=== PATIENT | male | born 1950 | race Caucasian/White ===

== ENCOUNTER 2019-10-26 09:13 | Inpatient (IN) | payer MEDICARE, OTHER, SELFPAY ==
[2019-10-26] VITALS (39 sets, daily range): BP systolic 109–208; BP diastolic 71–100; PULSE 43–62; RESP 7–20; TEMP 36.6–36.7; O2SAT 93–99; BMI 33.2
--- NOTE | 2019-10-26 09:39 | XR_ITS ---
WS: [id number] Portable AP upright chest, 10/26/2019 Clinical Data: chest pain Comparison: None, Findings: No nodules, masses or effusions are seen. The heart is normal. The pulmonary vascularity is not increased. No pneumonia or pneumothorax is seen. XR/XR chest 1V portable [id number] Impression: Negative chest.
--- NOTE | 2019-10-26 09:39 | ECG_ITS ---
[facility] Test Date: 2019-10-26 Pat Name: Dinesh Acuna Department: Room: Gender: Male Tire Balancer: : 1950 Requested By: Negrito Mueller Order Number: [id number] Ariane MD: Birgit Banegas M.D. Measurements Intervals [place] Rate: 53 P: 20 ND: 160 QRS: 9 QRSD: 96 T: 33 QT: 420 QTc: 397 Interpretive Statements SINUS BRADYCARDIA INFERIOR MYOCARDIAL INFARCTION , POSSIBLY ACUTE [40+ ms Q WAVE AND/OR ST/T ABNORMALITY IN II/aVF] ACUTE VT No previous ECG available for comparison Electronically Signed On 10-26-2019 21:22:50 CDT by Birgit Banegas M.D. [id number]
[2019-10-26 09:45] LABS: Basophils # 0.1 10^3/uL (0.0-0.1); Basophils % 0.7 %; Eosinophils # 0.1 10^3/uL (0.0-0.8); Eosinophils % 1.3 %; Hematocrit 44.3 % (42.0-52.0); Hemoglobin 14.7 g/dL (11.7-16.6); Lymphocytes % 13.6 %; Mean Corpuscular HGB Conc 33.2 g/dL (30.0-36.0); Mean Corpuscular Hemoglobin 30.2 pg (28.0-34.0); Mean Platelet Volume 8.9 fL (7.4-10.4); Monocytes # 0.5 10^3/uL (0.2-0.9); Monocytes % 6.8 %; Neutrophils # 5.55 10^3/uL (1.8-7.7); Neutrophils % 77.2 %; Nucleated Red Blood Cells % 0 %; Platelet Count 184 10^3/cmm (130-400); Red Blood Count 4.87 10^6/uL (4.1-5.3); Red Cell Distribution Width 11.9 % (12.1-15.1); White Blood Count 7.2 10^3/uL (4.0-10.0)
[2019-10-26] MEDS: heparin 5,000 unit/mL INJ 1 mL 4000 UNIT IVP (09:46)
[2019-10-26] MEDS: clopidogrel 300 mg Tablet 600 MG PO (09:46)
[2019-10-26] MEDS: aspirin 325 mg Tablet PO (09:46)
--- NOTE | 2019-10-26 09:48 | XACV_ITS ---
Exam Room: [facility] [place] Ht: 183 cm Wt: 111 kg BSA: 2.41 m2 Gender: Male : 1950 Any Known Allergies: No known allergies Exam Priority: Routine Indication(s): - NSTEMI - Acute coronary syndrome Procedure(s): Procedure Description: Diagnostic procedure Procedure Description: Left Heart Catheterization Procedure Description: Left ventriculography Procedure Description: Coronary Angiography Procedure Description: PTCA Diagnostic Cath Status: Emergency Diagnostic Findings LAD has minor luminal irregularity. CX has luminal irregularities. Second OM has a distal 100% occlusion. This is a small caliber vessel and occlusion is at the distal end of the vessel. LM has 0% stenosis. RCA has 0% stenosis. 2nd OM: Severe 100% stenosis, ROBERTO: 0 flow. Coronary angiography shows right dominance. PCI Status: Emergency PCI Indication: NSTE - ACS Interventional Findings We obtained access in the right radial artery. Significant tortuosity of the subclavian artery was noted [place] catheter was used to engage the left main artery. In order to engage the RCA we had to switch the access to right femoral artery where a 6 Citizen [place] sheath was inserted. After diagnostic angiography, we decided to wire with a distal OM 2 in order to assess the size of the vessel. 0.014 runthrough guidewire was inserted into the OM 2. It became evident that the size of the vessel is very small. This was not amenable to putting a stent in. We put a small 2.25 mm balloon and performed PTCA. At this time we decided to take the guidewire and guide catheter out. Patient left the Headend Technician in a stable condition. Conclusions LAD has minor luminal irregularity. CX has luminal irregularities. Second OM has a distal 100% occlusion. This is a small caliber vessel and occlusion is at the distal end of the vessel. We obtained access in the right radial artery. Significant tortuosity of the subclavian artery was noted [place] catheter was used to engage the left main artery. In order to engage the RCA we had to switch the access to right femoral artery where a 6 Citizen [place] sheath was inserted. After diagnostic angiography, we decided to wire with a distal OM 2 in order to assess the size of the vessel. 0.014 runthrough guidewire was inserted into the OM 2. It became evident that the size of the vessel is very small. This was not amenable to putting a stent in. We put a small 2.25 mm balloon and performed PTCA. At this time we decided to take the guidewire and guide catheter out. Patient left the Headend Technician in a stable condition. No significant disease noted in the Left Main, LAD, Circumflex, or RCA coronary arteries. Normal left ventricular systolic function. Ejection fraction of 65%. Recommendations Statin and aspirin 81mg lifelong, if tolerated. Continue Plavix 75mg p.o. daily for at least one year. We will assess at the end of one year to determine continuation or not. Cardiac echo. Interventional RX Recommendation: medical therapy and/or counseling LV EDP: 11 mmHg Ventriculography Ejection Fraction: 65.0 % Left Ventriculography Findings: Normal LV function with no regional wall motion abnormality noted. Pressures Phase:Rest AO : 170 mmHg / 90 mmHg ( 120 mmHg ) @ 5:06:00 AM 171 mmHg / 75 mmHg ( 112 mmHg ) @ 5:24:00 AM 178 mmHg / 80 mmHg ( 117 mmHg ) @ 5:32:00 AM 181 mmHg / 80 mmHg ( 118 mmHg ) @ 5:32:00 AM 140 mmHg / 85 mmHg ( 111 mmHg ) @ 6:13:00 AM LV : 185 mmHg / -18 mmHg / @ 5:30:00 AM 178 mmHg / -6 mmHg / @ 5:31:00 AM 176 mmHg / -6 mmHg / @ 5:32:00 AM Valves Phase:DefaultPhase AV : 3.0 mmHg @ 1:59:15 PM 3.0 mmHg @ 1:59:15 PM AV Mean Gradient: 7.0 mmHg @ 1:59:15 PM Clinical Evaluation EBL: 5mL-10mL Procedural Details Procedure Consent Obtained. Pre-Procedure Time Out. Identified patient by full name and date of as verbalized by the patient/guarantor. Does the consent match the physician's order: Yes. Accurate & Complete Informed Consent: Yes. Inpatient/Outpatient History & Physical on Chart: N/A Emergent. If H&P is completed, is and addenduem needed: N/A Emergent; If yes, is the addendum complete: N/A Emergent. Visualize and Verify Site with Patient/Guarantor: N/A. Relevant Radiology Images available: N/A Emergent. Pre-op teaching completed and patient verbalized understanding. The risks, benefits, and alternatives of sedation and/or procedure were discussed by physician. The patient agrees to continue. Procedure started. [facility] Clinical Fraility Score: 2: Well. Headend Technician Indications: ACS <= 24 hours. Chest Pain Symptom Assessment: Atypical Angina. Cardiovascular Instability: No. Correct patient, site and procedure confirmed by cath team. PERRLA. Strong, equal hand resident care associate bilaterally. Lungs clear x 5 lobes. IV Site on Arrival: 20 gauge in the right anticubital. IV Site on Arrival: 18 gauge in the left anticubital. IV Fluids: 0.9% NaCl at KVO. 0 mL infused prior to lab rn. Oxygen started at 2liters/min via nasal canula. bilateral groins was prepped with chloroprep then draped in the usual sterile fashion. right radial was prepped with chloroprep then draped in the usual sterile fashion. Baseline sample Acquired. HR: 56 BPM. Physician scrubbed in. Immediate Pre-Procedure Time Out. Correct Patient: Yes; Correct Procedure: Yes; Correct Site: Yes; Correct Patient Position: Yes; Correct Supplies: Yes; Dried Flammable Prep: Yes; Blood Products Available: N/A;. Lidocaine 1% infiltrated to the right radial. Arterial access obtained. A 5 gu[place] TIG catheter in over wire. Catheter redirected to the RCA. Multiple views taken of left coronary artery. Catheter out. Inventory is CRD 6FR JR 4 GUIDE 100cm. 6 gu[place] JR 4 guide catheter was inserted over the wire. Guide catheter out. unable to use radial access for intervention due to difficult anatomy. Moving to femoral approach. Lidocaine 1% infiltrated to the right groin. Arterial access obtained with micropuncture set. Aggrastat IV stopped. A 5 guatem[place] Angled Pig catheter in over wire. EDP Sample taken: LV 185/-19,10; HR: 67 BPM; SpO2: 100%. LV gram performed in RUBALCAVA @ 10 mL/second for a total of 30 mL. EDP Sample taken: LV 178/-7,17; HR: 52 BPM; SpO2: 99%. Pullback taken: LV 176/-7,15; AO 178/80(117); Mean: 7mmHg, Peak to Peak: 3mmHg, SEP: 18sec/min; HR: 54 BPM; SpO2: 99%. Physician scrubbed out. A TR Band was successful obtaining hemostatsis at the Right Radial artery insertion site. TR band placed. Hemostasis obtained. A Suture was successful obtaining hemostatsis at the Right Femoral artery insertion site. Sheath(s) sutured into position with 2-0 silk and sterile 4x4's and Op-site applied over the site. No oozing or signs and symptoms of hematoma noted. Post Procedure: Pulses reassessed and unchanged. Arterial sheath flushed and connected to tranducer and pressure bag with heparinized saline. PERRLA. Strong, equal hand resident care associate bilaterally. No VTE prophylaxis required. Medication's Wasted: Nitro = 49.8 mg. Medication's Wasted: Heparin = 4000 units. Complications: none. Estimated blood loss: 5mL-10mL. Procedure completed. Vital chart was stopped. Dr Banegas and Dr Robertson discussed case and reviewed films. Inventory is CRD 6 FR XB 3.5 GUIDE. Runthrough guidewire was advanced through the guide catheter to lesion in the OM. Inflation number : 1 A AB TREK 2.25X12 RX BALLOON was prepped and advanced across the 1st Ob Viktoriya , then inflated to 12 CJ for 0:21 seconds. Inflation number: 2 The AB TREK 2.25X12 RX BALLOON was reinflated across the 1st Ob Viktoriya, to 8 CJ for 0:24 seconds. Results checked. Balloon out. Wire out. PCI Indication: NSTE. Post-op diagnosis: NSTEMI. Complications: NONE. Patient transferred by bed to ICU. Site: Right Radial artery Sheath Size: 6 Fr Hemostasis Method: TR Band Hemostasis Success: Successful Site: Right Femoral artery Sheath Size: 6 Fr Hemostasis Method: Suture Hemostasis Success: Successful Procedure Medications Start: 10:02 AM Stop: 10:02 AM Medication: Versed Amount: 1 mg Route: I.V. Start: 10:02 AM Stop: 10:02 AM Medication: Fentanyl Amount: 50 mcg Route: I.V. Start: 10:03 AM Stop: 10:03 AM Medication: Nitrogylcerin Amount: 200 mcg Route: I.A. Start: 10:06 AM Stop: 10:06 AM Medication: Versed Amount: 1 mg Route: I.V. Start: 10:06 AM Stop: 10:06 AM Medication: Fentanyl Amount: 50 mcg Route: I.V. Start: 10:07 AM Stop: 10:07 AM Medication: Aggrastat 12.5 mg/250 mL Amount: 57.5 ml Route: I.V. bolus Start: 10:08 AM Stop: 10:08 AM Medication: Aggrastat 12.5 mg/250 mL Amount: 20.7 ml/hr Route: I.V. drip Start: 10:23 AM Stop: 10:23 AM Medication: Nitrogylcerin Amount: 1 Route: Topical Start: 11:17 AM Stop: 11:17 AM Medication: Nitrogylcerin Amount: 200 mcg Route: I.C. I, the attending physician, have reviewed and verified all procedure medications. Yes, all medications given per verbal order History/Risk Factors Hypertension: No Dyslipidemia: No Peripheral Arterial Disease (PAD): No Myocardial Infarction (KS): No Obesity: Yes Renal Disease: No Prior Interventions PCI: No CABG: No Valve Surgery: No Report Signatures Finalized by:Jona Robertson MD on 10/27/2019 11:19:12 AM
[2019-10-26] MEDS: sodium chloride 0.9% 1,000 ML 999 ML IV (09:50)
--- NOTE | 2019-10-26 09:53 | PM.HP ---
Providers/Chief Complaint Chief Complaint: tightness in chest History of Present Illness Dinesh Acuna is a 69 year old male past medical history significant for sepsis hypertension obesity probably hyperlipidemia and family h/o coronary artery disease who denies being a smoker and diabetic presented with chest pain radiating to jaw since 6:30 AM while feeding his animals. Upon arrival patient systolic blood pressure was around 220 twelve-lead EKG initially showed inferior ST elevation with reciprocal changes in the septal leads second EKG was also suggestive of high lateral [address] elevation, since patient continues to have chest pain and there is high suspicion that he may have acute coronary syndrome in progress we will take the patient to the Surveillance Sensor Operator. Further plan will be advised then. Patient has been explained all risk benefit and alternative for the procedure he would like to proceed with it. Patient has been given 600 mg of Plavix aspirin and 4000 units of heparin. Medications/Allergies Allergies Allergy/AdvReac Type Severity Reaction Status Date / Time No Known Allergies Allergy Verified 10/26/19 09:29 Vitals/I&O/Wt Last Vital Signs Temp 98.1 F 10/26/19 09:32 Pulse 55 L 10/26/19 09:32 Resp 18 10/26/19 09:32 BP 208/100 10/26/19 09:32 Pulse Ox 96 10/26/19 09:32 Weight last 48 hrs Weight 245 lb Physical Exam Narrative: EXAM NARRATIVE: GENERAL: Patient is alert, awake and oriented x3. NECK: No jugular vein distension. HEENT: No cyanosis. No icterus. No pallor. HEART: Regular S1 and S2. No murmur, rub or gallop. LUNGS: Clear to auscultate bilaterally. ABDOMEN: Soft, nontender and nondistended. Positive bowel sounds. No guarding, rebound or tenderness. CENTRAL NERVOUS SYSTEM: Grossly nonfocal. EXTREMITIES: Lower extremities without edema bilaterally. Data : 10/26/19 09:40 10/26/19 09:40 A&P Assessment and plan (1) ACS (acute coronary syndrome): Patient presentation is consistent with ST elevation HI. We will proceed with urgent left heart cath and PCI if indicated. Patient has been explained all risk benefit and alternative for the procedure by myself. He would like to proceed with it. Status: Acute (2) Hypertensive emergency: We will lower his blood pressure with nitro drip. Status: Acute Attestations Medical Necessity Statement*: I am expecting his stay to cross more than 2 midnights Coding Level of Care Code New Pt Acute Tree Feller Operator for Chg Fwd Patient Type New Medical Decision Making High Complexity Diagnoses ACS (acute coronary syndrome) I24.9 Hypertensive emergency I16.1
--- NOTE | 2019-10-26 09:55 | W.ED.CHESTPA ---
HPI - Chest Pain General: Chief Complaint: Chest Pain Stated Complaint: tightness in chest Time Seen by Provider: 10/26/19 09:34 History of Present Illness: HPI narrative: 69-year-old male presents to the emergency room with complaint of chest pain. 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 Patient is a non-smoker but he does chew he does not have diabetes he does have known history of hypertension no history of hyperlipidemia is not previously had any [place] has no known coronary disease and no previous evaluation of his heart MD complaint: chest pain Pertinent past history: coronary artery disease Onset (ago): hour(s) (Chest pain began at 6:30 AM patient presented to the emergency room at around 9:10 AM) Timing of current episode: constant Prior episodes: No Onset: during exertion Pain location: substernal and left chest Pain radiation: left shoulder Severity: moderate Quality: tightness and sharp Relieving factors: rest Exacerbating factors: exertion Associated symptoms: Deny abdominal pain, diaphoresis, dyspnea, fever(s), leg edema, nausea, sense of impending doom or vomiting Treatment prior to arrival: aspirin (81 mg) Review of Systems Const: Denies: fever(s) or diaphoresis ENMT: Denies: throat pain, ear or mastoid pain, nasal discharge or nasal congestion Card: Reports: chest pain and dyspnea on exertion; Denies: edema or orthopnea Resp: Denies: dyspnea GI: Denies: abdominal pain, nausea or vomiting : Denies: flank pain, dysuria, urinary frequency or urinary urgency Skin/Breast: Denies: rash or pruritus Physical Exam Const: COMMON NORMALS: no acute distress GENERAL APPEARANCE: cooperative and comfortable ORIENTATION/CONSCIOUSNESS: Yes awake, Yes oriented to person, Yes oriented to place and Yes oriented to time HENMT: COMMON NORMALS: normocephalic, atraumatic and hearing grossly normal bilaterally HEAD & SCALP: normocephalic and atraumatic Neck/C-Spine: COMMON NORMALS: no JVD Resp: COMMON NORMALS: normal respiratory effort, No retractions, No use of accessory muscles and clear to auscultation bilaterally AUSCULTATION: clear to auscultation bilaterally Cardio: COMMON NORMALS: no JVD, regular rate, regular rhythm and No murmurs present (Cardio) RATE: regular rate RHYTHM: regular rhythm GI: COMMON NORMALS: Soft to palpation and No hepatosplenomegaly present AUSCULTATION: Yes normoactive bowel sounds PALPATION: Yes Soft to palpation, No Tenderness to palpation present (GI), No Guarding due to palpation present (GI) and Yes No hepatosplenomegaly present Extremity: COMMON NORMALS: normal to inspection, capillary refill normal, no clubbing, cyanosis or edema, no calf tenderness and no pedal edema Neuro: SENSORIUM/ORIENTATION: Yes oriented to person, Yes oriented to place and Yes oriented to time Skin: COMMON NORMALS: no rashes or lesions noted GENERAL SKIN EXAM: no rashes or lesions noted Course Vital Signs: Vital signs: Vital Signs Temperature 98.8 F 10/27/19 07:00 Pulse Rate 54 L 10/27/19 09:30 Respiratory Rate 17 10/27/19 09:30 Blood Pressure 142/86 10/27/19 09:00 Pulse Oximetry 98 10/27/19 08:30 MDM - Chest Pain MDM Narrative: Medical decision making narrative: EKG shows a STEMI. STEMI alert was called Dr. Pierre is down to see the patient along with Dr. Caldwell they will take patient to the Social Media Marketing Specialist for angiography. He will be admitted from there. Lab Data: Labs: Lab Results 10/26/19 10/26/19 10/26/19 Range/Units 09:40 09:40 09:40 WBC 7.2 (4.0-10.0) 10^3/ uL RBC 4.87 (4.1-5.3) 10^6/u L Hgb 14.7 (11.7-16.6) g/dL Hct 44.3 (42.0-52.0) % MCV 91.0 (80-94) fL MCH 30.2 (28.0-34.0) pg MCHC 33.2 (30.0-36.0) g/dL RDW 11.9 L (12.1-15.1) % Plt Count 184 (130-400) 10^3/c mm MPV 8.9 (7.4-10.4) fL Neut % (Auto) 77.2 % Lymph % (Auto) 13.6 % [place] % (Auto) 6.8 % Eos % (Auto) 1.3 % Baso % (Auto) 0.7 % Neut # (Auto) 5.55 (1.8-7.7) 10^3/u L Lymph # (Auto) 1.0 (0.8-4.8) 10^3/u L [place] # (Auto) 0.5 (0.2-0.9) 10^3/u L Eos # (Auto) 0.1 (0.0-0.8) 10^3/u L Baso # (Auto) 0.1 (0.0-0.1) 10^3/u L Nucleated RBC % (a uto) 0 % Nucleated RBCs # 0.0 /100WBC PT 13.50 (12.1-14.9) SECO NDS INR 1.00 (0.8-1.2) APTT 28.7 (23.9-36.7) SECO NDS Sodium 138 (136-145) mmol/L Potassium 4.6 (3.5-5.1) mmol/L Chloride 104 (98-107) mmol/L Carbon Dioxide 24 (22-29) mmol/L Anion Gap 14.6 (5-19) BUN 18 (8-23) mg/dL Creatinine 0.8 (0.7-1.2) mg/dL GFR Calculation 96.4 (90-130) mL/min Glucose 134 H (65-115) mg/dL Calculated Osmolal ity 284 L (285-295) mOsm/k g Calcium 9.2 (8.5-10.5) mg/dL Total Bilirubin 0.3 (0.15-1.2) mg/dL AST 75 H (0-40) U/L ALT 93 H (0-41) U/L Alkaline Phosphata se 48 (40-130) IU/L Troponin T Baselin e (0-15) ng/L Troponin T 120 Min [place] (0-15) ng/L Delta Troponin T (0-10) ABS# Total Protein 7.6 (6.6-8.7) g/dL Albumin 4.6 (3.5-5.2) g/dL Globulin 3.0 (1.3-4.6) g/dL Triglycerides (0-150) mg/dL Cholesterol (0-200) mg/dL LDL Cholesterol, C alc (50-129) mg/dL HDL Cholesterol (60-100) mg/dL LDL/HDL Ratio (0.00-3.22) RATI O Cholesterol/HDL Ra meka (1.0-5.00) mg/dL 10/26/19 10/26/19 10/26/19 Range/Units 09:40 09:40 12:03 WBC (4.0-10.0) 10^3/ uL RBC (4.1-5.3) 10^6/u L Hgb (11.7-16.6) g/dL Hct (42.0-52.0) % MCV (80-94) fL MCH (28.0-34.0) pg MCHC (30.0-36.0) g/dL RDW (12.1-15.1) % Plt Count (130-400) 10^3/c mm MPV (7.4-10.4) fL Neut % (Auto) % Lymph % (Auto) % [place] % (Auto) % Eos % (Auto) % Baso % (Auto) % Neut # (Auto) (1.8-7.7) 10^3/u L Lymph # (Auto) (0.8-4.8) 10^3/u L [place] # (Auto) (0.2-0.9) 10^3/u L Eos # (Auto) (0.0-0.8) 10^3/u L Baso # (Auto) (0.0-0.1) 10^3/u L Nucleated RBC % (a uto) % Nucleated RBCs # /100WBC PT (12.1-14.9) SECO NDS INR (0.8-1.2) APTT (23.9-36.7) SECO NDS Sodium (136-145) mmol/L Potassium (3.5-5.1) mmol/L Chloride (98-107) mmol/L Carbon Dioxide (22-29) mmol/L Anion Gap (5-19) BUN (8-23) mg/dL Creatinine (0.7-1.2) mg/dL GFR Calculation (90-130) mL/min Glucose (65-115) mg/dL Calculated Osmolal ity (285-295) mOsm/k g Calcium (8.5-10.5) mg/dL Total Bilirubin (0.15-1.2) mg/dL AST (0-40) U/L ALT (0-41) U/L Alkaline Phosphata se (40-130) IU/L Troponin T Baselin e 95 H (0-15) ng/L Troponin T 120 Min [place] 305.0 H (0-15) ng/L Delta Troponin T 210.0 H* (0-10) ABS# Total Protein (6.6-8.7) g/dL Albumin (3.5-5.2) g/dL Globulin (1.3-4.6) g/dL Triglycerides 225 H (0-150) mg/dL Cholesterol 194 (0-200) mg/dL LDL Cholesterol, C alc 112 (50-129) mg/dL HDL Cholesterol 37 L (60-100) mg/dL LDL/HDL Ratio 3.03 (0.00-3.22) RATI O Cholesterol/HDL Ra meka 5.24 H (1.0-5.00) mg/dL Discharge Plan Discharge Patient Disposition: Admitted As Inpatient Admit Provider: Birgit Banegas Clinical Impression: ST elevation myocardial infarction (STEMI) Referrals: [facility] [Provider Group] - 4-7 days (YOU WILL NEED TO FOLLOW UP AT [facility] [phone] , YOU WILL FOLLOW UP WITH JAZMIN CUELLAR ,FOR WOUND CHECK AND LAB , THIS APPOINTMENT IS SCHEDULED FOR SUNDAY NOVEMBER 03, 2019 AT 2:00 PM ) Jona Robertson M.D [Physician] - (YOUR FOLLOW UP APPOINTMENT WITH . SCHEDULED FOR THE FOLLOWING DATE OF AT 1:15 PM ) Discharge Diet: Cardiac Patient Instructions: Lisinopril (By mouth), Aspirin (By mouth), Atorvastatin (By mouth), Clopidogrel (By mouth), Heart Healthy Diet, Myocardial Infarction (DC), Left Heart Catheterization (DC), Coronary Angioplasty (DC), Post Angiogram Home Care Instructions Interventions: ED Discharge Assessment Last Done: 10/26/19 10:00 ED Charges Last Done: 10/26/19 10:00 Discharge Date/Time: 10/26/19 09:58 Coding Level of Care Code ED Manual Lathe Operator for [facility] Fwd Exam Comprehensive
[2019-10-26 10:11] LABS: Alanine Aminotransferase 93 U/L (0-41); Albumin Level 4.6 g/dL (3.5-5.2); Alkaline Phosphatase 48 IU/L (40-130); Anion Gap 14.6 (5-19); Aspartate Amino Transferase 75 U/L (0-40); Blood Urea Nitrogen 18 mg/dL (8-23); Calcium 9.2 mg/dL (8.5-10.5); Carbon Dioxide 24 mmol/L (22-29); Chloride 104 mmol/L (98-107); Glomerular Filtration Rate 96.4 mL/min (90-130); Glucose 134 mg/dL (65-115); Osmolality Calculated 284 mOsm/kg (285-295); Potassium 4.6 mmol/L (3.5-5.1); Sodium 138 mmol/L (136-145); Total Bilirubin 0.3 mg/dL (0.15-1.2); Total Protein 7.6 g/dL (6.6-8.7)
[2019-10-26 10:13] LABS: Troponin(5th) Baseline 95 ng/L (0-15)
[2019-10-26 10:14] LABS: Partial Thromboplastin Time 28.7 SECONDS (23.9-36.7)
--- NOTE | 2019-10-26 11:39 | ECG_ITS ---
[facility] Test Date: 2019-10-26 Pat Name: Dinesh Acuna Department: Room: Gender: Male Linux Engineer: : 1950 Requested By: Negrito Mueller Order Number: [id number] Ariane MD: Birgit Banegas M.D. Measurements Intervals [place] Rate: 58 P: 34 MD: 162 QRS: 53 QRSD: 97 T: 27 QT: 403 QTc: 398 Interpretive Statements SINUS BRADYCARDIA Lateral wall ST elevation with inferior reciprocal changes suggestive of injury, consider acute myocardial infarction Electronically Signed On 10-26-2019 21:25:23 CDT by Birgit Banegas M.D. [id number]
[2019-10-26] MEDS: lisinopril 10 mg Tablet PO (12:58)
[2019-10-26] MEDS: acetaminophen 325 mg Tablet 650 MG PO ×2 (13:49→20:07)
[2019-10-26] MEDS: calcium carbonate 500 mg Chew Tablet 1000 MG PO (13:49)
--- NOTE | 2019-10-26 14:15 | PC.CHAP ---
Pastoral Care Encounter/Spiritual Assessment Type of Contact [] Declined public housing interviewer visit [x] Patient/Family/Request visit [] Outpatient visit [] Follow-up visit [] Physician referral [] Code/Alert [] Routine visit [] Staff referral [] Actively dying [] Patient sleeping [] Family support [] [] Out of room [] Palliative care [] [] Receiving care in room [] Pre-surgical visit [] Trauma [] Long length of stay [x] ICU visit [] Other: Relational/Emotional Strength [x] Patient feels connected with others/family/visitors/staff [] Distress [] Loneliness/isolation [] Abandonment Spirituality of Patient [x] Person of Tatiana [x] Attends Taoist of their Tatiana [x] Believes in Prayer [] Reads Bible or Anabaptism materials [] There are Spiritual issues to be addressed Time Analysis Clerk Interventions [] Prayer [x] Active listening [x] Non-anxious presence [x] Spiritual/emotional support [] Crisis/trauma care [] Spiritual counseling [] Bereavement support [] Provided bereavement packet [] Provided Bible/devotional materials [] Provided toy/stuffed animal, coloring book to patient or family member [] Provided Communion [] Anointing/Mc[place] [] Salvation [] Completed spiritual assessment [] Other: Impact on Illness or Injury [] Angry [] Fearful [] Anxious [] Often cries [] Exhaustion [] Unable to work [] Unable to attend druze [] Unable to walk/stand [] Unable to read [] Unable to drive [] Unable to eat/drink [] Unable to sleep [] Unable to be with family [] Patient intubated [] Other: Summary Patient feeling much better, in good spirits and feels blessed. Time spent with patient 10 min
--- NOTE | 2019-10-26 15:23 | PC.NURSE ---
c/o indigestion and headache. tylenol and tums given. some relief. states indigestion is not like he had this am.
[2019-10-26] MEDS: sodium chloride 0.9% 1,000 ML 100 ML IV ×2 (15:35→20:08)
--- NOTE | 2019-10-26 15:39 | ECG_ITS ---
[facility] Test Date: 2019-10-26 Pat Name: Dinesh Acuna Department: Room: ICU01 Gender: Male Unit Coordinator: : 1950 Requested By: Negrito Mueller Order Number: [id number] Ariane MD: Birgit Banegas M.D. Measurements Intervals [place] Rate: 44 P: 34 SD: 190 QRS: -3 QRSD: 90 T: 19 QT: 460 QTc: 397 Interpretive Statements SINUS BRADYCARDIA Compared to ECG 10/26/2019 09:46:57 Myocardial infarct finding no longer present Electronically Signed On 10-26-2019 21:26:04 CDT by Birgit Banegas M.D. [id number]
--- NOTE | 2019-10-26 17:00 | PC.NURSE ---
sheath removed from right groin intact. pressure held for 10 min. no oozing. removing air from tr band slowly.
[2019-10-26 17:26] LABS: Troponin 5 6HR 660.5 ng/L (0-15); Troponin 5 6HR Delta 565.5 ng/L (0-12)
[2019-10-26 19:26] LABS: Chol HDL Ratio 5.24 mg/dL (1.0-5.00); Cholesterol 194 mg/dL (0-200); HDL Cholesterol 37 mg/dL (60-100); LDL Cholesterol Calculated 112 mg/dL (50-129); LDL HDL Ratio 3.03 RATIO (0.00-3.22); Triglycerides 225 mg/dL (0-150)
[2019-10-26] MEDS: atorvastatin 40 mg Tablet PO (20:07)
--- NOTE | 2019-10-26 23:54 | PC.NURSE ---
Right groin site C/D/I, dressing changed to tagaderm. Patient sat upright in bed, positioned to standing, asymptomatic. Nitro paste to right pectoral area cleaned, thrown away. After movement patient's right groin site remained C/D/I.
[2019-10-27] VITALS (17 sets, daily range): BP systolic 124–158; BP diastolic 76–86; PULSE 46–64; RESP 0–17; TEMP 36.6–37.1; O2SAT 94–98
[2019-10-27] MEDS: acetaminophen 325 mg Tablet 650 MG PO (02:49)
[2019-10-27] MEDS: sodium chloride 0.9% 1,000 ML 100 ML IV (03:35)
[2019-10-27 04:54] LABS: Basophils % 0.4 %; Eosinophils # 0.2 10^3/uL (0.0-0.8); Hematocrit 40.1 % (42.0-52.0); Hemoglobin 13.1 g/dL (11.7-16.6); Lymphocytes # 1.2 10^3/uL (0.8-4.8); Lymphocytes % 15.6 %; Mean Corpuscular HGB Conc 32.7 g/dL (30.0-36.0); Mean Corpuscular Hemoglobin 29.9 pg (28.0-34.0); Mean Corpuscular Volume 91.6 fL (80-94); Mean Platelet Volume 9.4 fL (7.4-10.4); Monocytes # 0.8 10^3/uL (0.2-0.9); Monocytes % 10.2 %; Neutrophils # 5.27 10^3/uL (1.8-7.7); Neutrophils % 70.7 %; Nucleated Red Blood Cells % 0 %; Platelet Count 170 10^3/cmm (130-400); Red Blood Count 4.38 10^6/uL (4.1-5.3); White Blood Count 7.5 10^3/uL (4.0-10.0)
[2019-10-27 05:22] LABS: Anion Gap 13.6 (5-19); Blood Urea Nitrogen 13 mg/dL (8-23); Calcium 8.8 mg/dL (8.5-10.5); Carbon Dioxide 23 mmol/L (22-29); Chloride 106 mmol/L (98-107); Glomerular Filtration Rate 96.4 mL/min (90-130); Glucose 123 mg/dL (65-115); Osmolality Calculated 284 mOsm/kg (285-295); Potassium 4.6 mmol/L (3.5-5.1); Sodium 138 mmol/L (136-145)
--- NOTE | 2019-10-27 08:21 | PM.DCS ---
Discharge Providers Date of Admission: 10/26/19 12:05 Date of Discharge: October 27, 2019 Attending Provider at Admission: Birgit Banegas MD Attending Provider at Discharge: Jona Robertson MD Diagnoses at Discharge Discharge Diagnosis (1) ACS (acute coronary syndrome): Status: Acute Problem details: NSTEMI (2) Hypertensive emergency: Status: Acute Reason for Visit Reason for Visit: tightness in chest Brief History: 69-year-old man with no prior medical history, presented to the hospital with 3 to 4 hours of indigestion and chest discomfort radiating to the neck. EKG showed transient ST changes in in lateral and inferior leads. 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 Hospital Course Hospital Course: 69-year-old man with no prior medical history, presented to the hospital with 3 to 4 hours of indigestion and chest discomfort radiating to the neck. EKG showed transient ST changes in in lateral and inferior leads. Patient also had hypertensive emergency with blood pressure in excess of 210 mmHg systolic. 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 Cardiac angiogram showed occlusion of distal OM 2 vessel which was small sized artery. Balloon angioplasty was performed, however because of the distal site of the coronary artery and the small size still stent was not placed. LV gram showed normal ejection fraction. Echocardiogram showed also showed normal heart function with no significant regional wall motion abnormalities. Postprocedure patient's chest pain resolved. His EKG changes also resolved on follow-up EKG. On post catheter day 2, patient was in a stable condition. He was discharged on aspirin, Plavix, atorvastatin and lisinopril 10 mg. Patient could not be started on beta-megan because of bradycardia. Discharge Summary: 69-year-old man with no prior medical history, presented to the hospital with 3 to 4 hours of indigestion and chest discomfort radiating to the neck. EKG showed transient ST changes in in lateral and inferior leads. Patient also had hypertensive emergency with blood pressure in excess of 210 mmHg systolic. 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 Cardiac angiogram showed occlusion of distal OM 2 vessel which was small sized artery. Balloon angioplasty was performed, however because of the distal site of the coronary artery and the small size still stent was not placed. LV gram showed normal ejection fraction. Echocardiogram showed also showed normal heart function with no significant regional wall motion abnormalities. Postprocedure patient's chest pain resolved. His EKG changes also resolved on follow-up EKG. On post catheter day 2, patient was in a stable condition. He was discharged on aspirin, Plavix, atorvastatin and lisinopril 10 mg. Patient could not be started on beta-megan because of bradycardia. Physical Exam Narrative: EXAM NARRATIVE: GENERAL: Patient is alert, awake and oriented x3. [] NECK: No jugular vein distension. [] HEENT: No cyanosis. No icterus. No pallor. [] HEART: Regular S1 and S2. No murmur, rub or gallop. [] LUNGS: Clear to auscultate bilaterally. [] ABDOMEN: Soft, nontender and nondistended. Positive bowel sounds. No guarding, rebound or tenderness. [] CENTRAL NERVOUS SYSTEM: Grossly nonfocal. [] EXTREMITIES: Lower extremities with no edema bilaterally. pulses palpable in the lower extremities, both dorsalis pedis and posterior tibial. [] Discharge Data Data Completed and Pending: Completed Studies During Hospitalization Category Date Time Status XR chest 1V anabelle ble [id number] Urgent Exams 10/26/19 09:39 Completed Pending at discharge Category Date Time Status BORING MACHINE OPERATOR request for service Stat Exams 10/26/19 09:48 Taken CV echo complete* [id number] Routine Ultrasound 10/27/19 17:41 Taken Labs from last 24 hours 10/27/19 10/27/19 10/26/19 04:20 04:20 15:22 WBC 7.5 RBC 4.38 Hgb 13.1 Hct 40.1 L MCV 91.6 MCH 29.9 MCHC 32.7 RDW 12.0 L Plt Count 170 MPV 9.4 Neut % (Auto) 70.7 Lymph % (Auto) 15.6 [place] % (Auto) 10.2 Eos % (Auto) 3.0 Baso % (Auto) 0.4 Neut # (Auto) 5.27 Lymph # (Auto) 1.2 [place] # (Auto) 0.8 Eos # (Auto) 0.2 Baso # (Auto) 0.0 Nucleated RBC % (a uto) 0 Nucleated RBCs # 0.0 PT INR APTT 31.0 Sodium 138 Potassium 4.6 Chloride 106 Carbon Dioxide 23 Anion Gap 13.6 BUN 13 Creatinine 0.8 GFR Calculation 96.4 Glucose 123 H Calculated Osmolal ity 284 L Calcium 8.8 Total Bilirubin AST ALT Alkaline Phosphata se Troponin T Baselin e Troponin T [address] [place] Troponin T Troponin T Hi Sens 6Hr Troponin T Hi Sens 6Hr Delta Total Protein Albumin Globulin Triglycerides Cholesterol LDL Cholesterol, C alc HDL Cholesterol LDL/HDL Ratio Cholesterol/HDL Ra meka 10/26/19 10/26/19 10/26/19 15:22 12:03 09:40 WBC RBC Hgb Hct MCV MCH MCHC RDW Plt Count MPV Neut % (Auto) Lymph % (Auto) [place] % (Auto) Eos % (Auto) Baso % (Auto) Neut # (Auto) Lymph # (Auto) [place] # (Auto) Eos # (Auto) Baso # (Auto) Nucleated RBC % (a uto) Nucleated RBCs # PT INR APTT Sodium Potassium Chloride Carbon Dioxide Anion Gap BUN Creatinine GFR Calculation Glucose Calculated Osmolal ity Calcium Total Bilirubin AST ALT Alkaline Phosphata se Troponin T Baselin e Troponin T [address] [place] 305.0 H Delta Troponin T 210.0 H* Troponin T Hi Sens 6Hr 660.5 H Troponin T Hi Sens 6Hr Delta 565.5 H* Total Protein Albumin Globulin Triglycerides 225 H Cholesterol 194 LDL Cholesterol, C alc 112 HDL Cholesterol 37 L LDL/HDL Ratio 3.03 Cholesterol/HDL Ra meka 5.24 H 10/26/19 10/26/19 10/26/19 09:40 09:40 09:40 WBC RBC Hgb Hct MCV MCH MCHC RDW Plt Count MPV Neut % (Auto) Lymph % (Auto) [place] % (Auto) Eos % (Auto) Baso % (Auto) Neut # (Auto) Lymph # (Auto) [place] # (Auto) Eos # (Auto) Baso # (Auto) Nucleated RBC % (a uto) Nucleated RBCs # PT 13.50 INR 1.00 APTT 28.7 Sodium 138 Potassium 4.6 Chloride 104 Carbon Dioxide 24 Anion Gap 14.6 BUN 18 Creatinine 0.8 GFR Calculation 96.4 Glucose 134 H Calculated Osmolal ity 284 L Calcium 9.2 Total Bilirubin 0.3 AST 75 H ALT 93 H Alkaline Phosphata se 48 Troponin T Baselin e 95 H Troponin T [address] [place] Troponin T Troponin T Hi Sens 6Hr Troponin T Hi Sens 6Hr Delta Total Protein 7.6 Albumin 4.6 Globulin 3.0 Triglycerides Cholesterol LDL Cholesterol, C alc HDL Cholesterol LDL/HDL Ratio Cholesterol/HDL Ra meka 10/26/19 09:40 WBC 7.2 RBC 4.87 Hgb 14.7 Hct 44.3 MCV 91.0 MCH 30.2 MCHC 33.2 RDW 11.9 L Plt Count 184 MPV 8.9 Neut % (Auto) 77.2 Lymph % (Auto) 13.6 [place] % (Auto) 6.8 Eos % (Auto) 1.3 Baso % (Auto) 0.7 Neut # (Auto) 5.55 Lymph # (Auto) 1.0 [place] # (Auto) 0.5 Eos # (Auto) 0.1 Baso # (Auto) 0.1 Nucleated RBC % (a uto) 0 Nucleated RBCs # 0.0 PT INR APTT Sodium Potassium Chloride Carbon Dioxide Anion Gap BUN Creatinine GFR Calculation Glucose Calculated Osmolal ity Calcium Total Bilirubin AST ALT Alkaline Phosphata se Troponin T Baselin e Troponin T [address] [place] Troponin T Troponin T Hi Sens 6Hr Troponin T Hi Sens 6Hr Delta Total Protein Albumin Globulin Triglycerides Cholesterol LDL Cholesterol, C alc HDL Cholesterol LDL/HDL Ratio Cholesterol/HDL Ra meka Vitals: Last Vital Signs Temp 98.8 F 10/27/19 07:00 Pulse 59 L 10/27/19 07:00 Resp 17 10/27/19 07:00 BP 124/85 10/27/19 07:00 Pulse Ox 97 10/27/19 07:00 Discharge Plan Discharge Patient Disposition: Home Prescriptions: New atorvastatin 40 mg Tablet 40 mg PO BEDTIME Qty: 30 RF: 4 clopidogrel 75 mg Tablet 75 mg PO DAILY Qty: 90 RF: 4 aspirin 81 mg Tablet,Delayed Release (Dr/Ec) 81 mg PO DAILY Qty: 90 RF: 4 lisinopril 10 mg Tablet 10 mg PO DAILY Qty: 30 RF: 4 Discharge Orders: Discharge Order (Routine); Ordered 10/27/19 Ordered By: Jona Robertson Referrals: [facility] [Provider Group] - 4-7 days (YOU WILL NEED TO FOLLOW UP AT [facility] [phone] , YOU WILL FOLLOW UP WITH JAZMIN CUELLAR ,FOR WOUND CHECK AND LAB , THIS APPOINTMENT IS SCHEDULED FOR SUNDAY NOVEMBER 03, 2019 AT 2:00 PM ) Jona Robertson M.D [Physician] - (YOUR FOLLOW UP APPOINTMENT WITH . SCHEDULED FOR THE FOLLOWING DATE OF AT 1:15 PM ) Discharge Diet: Cardiac Patient Instructions: Lisinopril (By mouth), Aspirin (By mouth), Atorvastatin (By mouth), Clopidogrel (By mouth), Heart Healthy Diet, Myocardial Infarction (DC), Left Heart Catheterization (DC), Coronary Angioplasty (DC), Post Angiogram Home Care Instructions Discharge Date/Time: 10/27/19 11:30 Discharge Attestations Time Spent in Discharge Care*: greater than 30 min Specific Discharge Activities: Specific discharge activities: educating patient and documenting/other paperwork Status at Discharge: Cognitive status at discharge: cognitively intact, Behavioral status at discharge: cooperative, Functional status at discharge: independent ambulation Overall status at discharge: patient is back to baseline Quality Metrics Clinical Quality Measures During this hospital stay, did patient experience: None Coding Level of Care Code 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
[2019-10-27] MEDS: aspirin 81 mg EC Tablet PO (08:35)
[2019-10-27] MEDS: clopidogrel 75 mg Tablet PO (08:35)
[2019-10-27] MEDS: lisinopril 10 mg Tablet PO (08:35)
--- NOTE | 2019-10-27 13:04 | PC.NURSE ---
Pt discharged home at 11:40. Education given. Paperwork given and signed. He was reminded of his two upcoming follow-up appointments with Dr. Robertson. IV's removed. Puncture sites (right radial and right femoral) WNL; dressings intact. No s/s distress and no complaints from patient. All questions answered. Prescriptions called in to his preferred pharmacy. Pt was strongly encouraged to call someone to drive him home, but he insisted on driving himself home. Pt agreed to call this department and let us know he had made it home safely (which he later did). Pt assisted via wheelchair to his vehicle. Personal belongings given to him.
--- NOTE | 2019-10-27 17:41 | USCV_ITS ---
Dinesh Acuna Age: 69 Gender: M : 1950 Exam Date: 10/27/2019 06:07 Ordering Phys: Jona Robertson M.D ([email or web address]) Technologist: Ebonie Nielson [place] [facility] [place]: ID POST CATH AND INTERVENTION BP: 147 / 85 HR: 46 Rhythm: Sinus Technical Quality: Adequate MEASUREMENTS (Male / Female) Normal Values 2D ECHO LV Diastolic Diameter PLAX 5.4 cm 4.2 - 5.9 / 3.9 - 5.3 cm LV Systolic Diameter PLAX 3.3 cm LV Chamber Size 3.5 cm IVS Diastolic Thickness 1.3 cm 0.6 - 1.0 / 0.6 - 0.9 cm IVS Systolic Thickness 2.1 cm LVPW Diastolic Thickness 1.2 cm 0.6 - 1.0 / 0.6 - 0.9 cm LVPW Systolic Thickness 1.8 cm RV Chamber Size 3.2 cm LVOT Diameter 2.2 cm LV Ejection Fraction 2D Teich 69.1 % LV Ejection Fraction MOD 2C 29.5 % LV Ejection Fraction 2C AL 34.7 % LA Diameter 5.4 cm LA Width 2.9 cm LA Height 4.0 cm RA Width 4.0 cm RA Height 3.4 cm Aorta at Sinotubular Diameter 3.9 cm M-MODE LV Diastolic Diameter MM 6.7 cm 4.2 - 5.9 / 3.9 - 5.3 cm LV Systolic Diameter MM 3.4 cm LV Ejection Fraction MM Teich 79.1 % IVS Diastolic Thickness MM 1.1 cm 0.6 - 1.0 / 0.6 - 0.9 cm IVS Systolic Thickness MM 2.1 cm LVPW Diastolic Thickness MM 1.4 cm 0.6 - 1.0 / 0.6 - 0.9 cm LVPW Systolic Thickness MM 2.3 cm RV Diastolic Diameter MM 1.9 cm Aortic Annulus Diameter 3.6 cm LA Ao Ratio MM 1.5 MV E Point Septal Separation 0.2 cm DOPPLER AV Peak Velocity 147.0 cm/s LVOT Peak Velocity 147.0 cm/s AV Area Cont Eq vti 3.4 cm squared AV Area Cont Eq pk 3.8 cm squared MV Area PHT 2.7 cm squared Mitral E to A Ratio 0.8 MV E' Velocity 7.0 cm/s Mitral E to MV E' Ratio 9.7 Mitral E to LV E' Lateral Ratio 9.9 Mitral E to LV E' Septal Ratio 9.6 TR Peak Velocity 131.7 cm/s TR Peak Gradient 6.9 mmHg TR Mean Velocity 90.3 cm/s TR Mean Gradient 3.5 mmHg TR Velocity Time Integral 31.2 cm TV Peak E Velocity 61.0 cm/s Right Atrial Pressure 3.0 mmHg Pulmonary Artery Systolic Pressu 9.9 mmHg PV Peak Velocity 67.0 cm/s RV Acceleration Time 0.2 s RV Ejection Time 0.4 s RV AcT/ET 0.5 FINDINGS Left Ventricle Normal left ventricular size, systolic function and wall thickness, with no regional wall motion abnormalities. LVEF is 55 to 60%. Normal left ventricular wall thickness. Diastolic dysfunction is noted. Right Ventricle The right ventricle is normal in size and function. Right Atrium The right atrium is normal in size. Left Atrium The left atrium is normal in size. Mitral Valve Structurally normal mitral valve without significant stenosis or prolapse. There is no mitral regurgitation. Aortic Valve Structurally normal aortic valve without significant sclerosis or stenosis. There is no aortic regurgitation. Tricuspid Valve Structurally normal tricuspid valve without significant stenosis or regurgitation. RVSP cannot be calculated because of insufficient TR jet. Pulmonic Valve Structurally normal pulmonic valve without significant stenosis. There is no pulmonic regurgitation. Pericardium Normal pericardium without effusion. Aorta Normal ascending aorta dimension. CONCLUSIONS This is technically adequate study. Normal LV function with EF of 55- 60%. Diastolic dysfunction is noted. Jona Robertson MD (Electronically Signed) Final Date: 27 October 2019 10:18 S
== END 2019-10-27 11:30 | disposition home or self-care (01) | DRG 281 ==
LOC: ER 09:58 → CCL 09:58 → ICU 20:48
PROVIDERS: Internal Medicine; Admitting Provider Internal Medicine Cardiovascular Disease; Emergency Provider Family Medicine; Visit Provider Internal Medicine Cardiovascular Disease
DX: I21.4 Non-ST elevation (NSTEMI) myocardial infarction (principal); I16.1 Hypertensive emergency; I24.9 Acute ischemic heart disease, unspecified; E66.9 Obesity, unspecified; Z68.33 Body mass index [BMI] 33.0-33.9, adult; E78.5 Hyperlipidemia, unspecified; Z82.49 Family history of ischemic heart disease and other diseases of the circulatory system; F17.220 Nicotine dependence, chewing tobacco, uncomplicated
CPT/HCPCS: 12345; 36415; 71045; 80048; 80053; 80061; 84484; 85025; 85610; 85730; 92920; 93005; 93306; 93452; 96375; 99282; C1725; C1769; C1887; C1894; J1644; J2250; J3010; J3246; J3490; J7030; Q9967

== ENCOUNTER → 2019-11-03 14:27 | Outpatient (BNVA) | payer MEDICARE, OTHER, SELFPAY | PROVIDERS: PCP Nurse Practitioner Family; Visit Provider Nurse Practitioner Family | DX: I21.3 ST elevation (STEMI) myocardial infarction of unspecified site (principal); I25.10 Atherosclerotic heart disease of native coronary artery without angina pectoris; I25.2 Old myocardial infarction | CPT/HCPCS: 80048 ==

== ENCOUNTER 2020-05-17 13:45 | Outpatient (CLI) | payer MEDICARE, OTHER, SELFPAY ==
--- NOTE | 2020-05-17 13:55 | XR_ITS ---
WS: [id number] Left knee, 3 views, 05/17/2020 Clinical Data: BILATERAL KNEE PAIN/OSTEOARTHRITIS Comparison: Left knee, 08/25/2018. Findings: There is medial joint compartment narrowing. The lateral joint space is normal. There is irregularity of the posterior patella. No fractures or dislocations are seen. The soft tissues are normal. XR/XR knee LT 3V* [id number] Impression: Medial joint compartment narrowing and minimal posterior patellar irregularity of the left knee
--- NOTE | 2020-05-17 13:55 | XR_ITS ---
WS: [id number] Right knee, 3 views, 05/17/2020 Clinical Data: BILATERAL KNEE PAIN/OSTEOARTHRITIS Comparison: Right knee, 08/25/2018. Findings: There is medial joint compartment narrowing. The lateral joint compartment is preserved. There is mil d posterior right patellar spurring. The soft tissues are normal. No fractures or dislocations are noted. XR/XR knee RT 3V* [id number] Impression: Moderate medial joint compartment narrowing and mild posterior patellar spurrin g of the right knee.
== END 2020-05-17 13:46 | disposition home or self-care (01) ==
PROVIDERS: PCP Family Medicine; Visit Provider Family Medicine
DX: M25.561 Pain in right knee (principal); M19.90 Unspecified osteoarthritis, unspecified site; M25.562 Pain in left knee
CPT/HCPCS: 73562

== ENCOUNTER 2020-11-13 10:34 | Outpatient (CLI) | payer MEDICARE, OTHER, SELFPAY ==
--- NOTE | 2020-11-13 10:44 | XRR_ITS ---
PROCEDURE INFORMATION: Exam: XR Right Knee Exam date and time: 11/13/2020 10:44 AM Age: 70 years old Clinical indication: Pain and condition or disease; Type of osteoarthritis not specified; Bilateral; Patient HX: C/O bilat knee pain x 6-7 years; PT has had him wearing braces to hold patella in place. May have procedure to help with this. ; Additional info: Bilateral knee pain/osteoarthritis TECHNIQUE: Imaging protocol: XR Right knee. Views: 1 or 2 views. COMPARISON: CR XR knee RT 3V* [id number] 05/17/2020 2:14 PM FINDINGS: Bones/joints: Mild degenerative narrowing of the medial and patellofemoral compartments with small marginal osteophyte formation. Soft tissues: Normal. XR/XR knee RT 1-2V [id number] IMPRESSION: Mild DJD of the right knee centered within the medial and patellofemoral compartments. No significant change from prior study.
--- NOTE | 2020-11-13 10:44 | XRR_ITS ---
PROCEDURE INFORMATION: Exam: XR Left Knee Exam date and time: 11/13/2020 10:44 AM Age: 70 years old Clinical indication: Pain and condition or disease; Type of osteoarthritis not specified; Bilateral; Patient HX: C/O bilat knee pain x 6-7 years; PT has had him wearing braces to hold patella in place. May have procedure to help with this. ; Additional info: Bilateral knee pain/unspecified osteoarthritis TECHNIQUE: Imaging protocol: XR Left knee. Views: 3 views. COMPARISON: CR XR knee LT 3V* [id number] 05/17/2020 2:11 PM FINDINGS: Bones/joints: Moderate degenerative narrowing of the medial compartment and mild narrowing of the patellofemoral compartment with small marginal osteophyte formation. Soft tissues: Normal. XR/XR knee LT 3V* [id number] IMPRESSION: Rien-fc-dzkwncoi DJD of the left knee most significant at the medial compartment. Not significantly changed from prior study.
== END 2020-11-13 10:35 | disposition home or self-care (01) ==
LOC: RAD 10:42
PROVIDERS: PCP Family Medicine; Visit Provider Family Medicine
DX: M17.0 Bilateral primary osteoarthritis of knee (principal)
CPT/HCPCS: 73560; 73562

== ENCOUNTER 2021-07-08 11:21 | Outpatient (CLI) | payer MEDICARE, SELFPAY ==
--- NOTE | 2021-07-08 11:35 | US_ITS ---
WS: [id number] TESTICULAR ULTRASOUND HISTORY: SCROTAL MASS COMPARISON: None available. TECHNIQUE: Real-time and color Doppler imaging or utilized to perform a testicular ultrasound. Right testicle: 4.2 cm x 2.5 cm x 2.1 cm. Normal size and echogenicity. No mass or torsion. Normal color Doppler is present throughout. Systolic and diastolic velocities are both present. Small simple hydrocele. Right epididymis: Mildly prominent epididymis but there is no hyperemia or mass. Left testicle: 4.4 cm x 3.2 cm x 2.6 cm. Normal size and echogenicity. No mass or torsion. Normal color Doppler is present throughout. Systolic and diastolic velocities are both present. No significant hydrocele. Left epididymis: LEFT epididymis is mildly prominent but no increased vascularity. Patient localizes the palpable area to the superior RIGHT scrotum. No increased vascularity. There is a small amount of simple fluid. The adjacent epididymis is present with no mass. US/US scrotum [id number] IMPRESSION: 1. No testicular mass or torsion. 2. Patient localizes the palpable area to the superior RIGHT scrotum. There is a small amount of simple fluid and the epididymis. No epididymal mass or epidi dymitis.
== END 2021-07-08 11:22 | disposition home or self-care (01) ==
LOC: RAD 11:27
PROVIDERS: PCP Family Medicine; Visit Provider Family Medicine
DX: N50.89 Other specified disorders of the male genital organs (principal)
CPT/HCPCS: 76870

== ENCOUNTER → 2022-03-25 12:49 | Outpatient (BNVA) | payer MEDICARE, SELFPAY | PROVIDERS: PCP Family Medicine; Visit Provider Internal Medicine Cardiovascular Disease | DX: I25.10 Atherosclerotic heart disease of native coronary artery without angina pectoris (principal); I10 Essential (primary) hypertension; I25.2 Old myocardial infarction | CPT/HCPCS: 99213 ==

== ENCOUNTER 2022-09-10 07:33 | Day surgery (SDC) | payer MEDICARE, SELFPAY ==
[2022-09-08 10:02] VITALS: BMI 32.5
[2022-09-10 07:48] VITALS: BP 143/104; PULSE 57; RESP 16; TEMP 36.1; O2SAT 98
[2022-09-10] MEDS: sodium chloride 0.9% 1,000 ML 30 ML IV (07:57)
--- NOTE | 2022-09-10 08:05 | W.PM.OPSUD ---
Surgery/Procedure H&P Update DATE OF PROCEDURE: September 10, 2022 DATE H&P PERFORMED: 08/12/22 H&P UPDATE INFORMATION: I have reviewed H&P completed within last 30 days, I have examined patient prior to procedure and No changes to prior documentation PLANNED PROCEDURE: Operation Date: 09/10/22 08:45 Proposed Procedures p EGD(Not Applicable) - DO celina Foster Colonoscopy [id number] Z12.11 D50.9(Not Applicable) - Chan Kebede DO
--- NOTE | 2022-09-10 08:09 | ANES.PREANE2 ---
Documented by User: Jose Christianson CRNA 09/10/22 08:11 Pre-Anesthetic Assessment Height/Weight: Height 1.83 m Weight 108.862 kg Temp Pulse Resp BP Pulse Ox O2 Del Method 97.0 F L 57 L 16 143/104 98 Room Air 09/10/22 07:48 09/10/22 07:48 09/10/22 07:48 09/10/22 07:48 09/10/22 07:48 09/10/22 07:48 Preop Diagnosis: screening anemia Operation Date: 09/10/22 08:45 Proposed Procedures p EGD(Not Applicable) - DO celina Foster Colonoscopy 59925/21939 Z12.11 D50.9(Not Applicable) - Chan Kebede DO Familial anesthetic complications: none Was Beta Joseph taken within 24 hours: N/A Last intake: Intake Last Liquid Date 09/09/22 Last Liquid Time 19:00 Last Solid Date 09/08/22 Last Solid Time 18:30 Social Tobacco (smokeless tobacco stopped July 14) Medications/Allergies Home Medications Medication Instructions Recorded Confirmed Last Taken Type aspirin 81 mg tablet,delayed 81 mg PO DAILY #90 tabs 10/27/19 09/10/22 09/08/22 Rx release coenzyme Q10 100 mg capsule (Co 100 mg PO DAILY 05/15/20 09/10/22 09/08/22 History Q-10) meloxicam 15 mg tablet 15 mg PO DAILY #60 tabs 06/28/20 09/10/22 09/08/22 Rx tamsulosin 0.4 mg capsule 0.4 mg PO DAILY 11/20/20 09/10/22 09/08/22 History losartan 25 mg tablet 25 mg PO DAILY #90 tabs 03/25/22 09/10/22 09/10/22 Rx atorvastatin 40 mg tablet 40 mg PO BEDTIME #90 tabs 05/15/22 09/10/22 09/08/22 Rx docusate sodium 100 mg capsule 100 mg PO DAILY 08/12/22 09/10/22 09/08/22 History Fish Oil 1 tab PO DAILY 09/08/22 09/10/22 09/08/22 History Glucosamine 1 tab PO BID 09/08/22 09/10/22 09/08/22 History Multi Vitamin 1 tab PO DAILY 09/08/22 09/10/22 09/08/22 History Vitamin D3 1 tab PO DAILY 09/08/22 09/10/22 09/08/22 History oxkgqqj-ztip-iywdt-oreg-capryl 1 tab PO DAILY 09/08/22 09/10/22 09/08/22 History Allergies Allergy/AdvReac Type Severity Reaction Status Date / Time No Known Allergies Allergy Verified 09/10/22 07:47 Current Medications Generic Name Dose Route Start Last Admin Trade Name Freq PRN Reason Stop Dose Admin Sodium Chloride 1,000 mls @ 30 mls/hr 09/10/22 07:45 09/10/22 07:57 Sodium Chloride 0.9% IV 09/11/22 07:44 30 mls/hr .Q24H RUMA Administration PFSH Anesthesia Medical History (Updated 08/12/22 @ 09:00 by Chan Kebede DO) Coronary artery disease Hypertension Surgical History (Updated 08/12/22 @ 09:00 by Chan Kebede DO) History of left knee replacement History of tonsillectomy History of vasectomy Social History Smoking and tobacco status: never smoked Alcohol intake: former Substance/Drug Use: former Data Anesthesia Cardiac Studies: Echocardiogram Ultrasound 10/27/19 Documented by User: Ana María Ewing CRNA 09/10/22 08:15 Pre-Anesthetic Assessment Exam alert, oriented x 3, clear to auscultation bilaterally and regular rate & rhythm Airway Submandibular: within normal limits Cervical ROM: within normal limits Mallampati: Class I Dentition: full Pulmonary None reported CV/HEM Anemia, Coronary Artery Disease, Hypertension and Myocardial Infarction (angioplasty 2019) None reported Hepatic None reported GI Gastroesophageal Reflux Disease (controlled with OTC) Metabolic Hyperlipidemia [facility] [place]/skel None reported Neuropsych None reported Anesthetic Plan ASA status: 3 Anesthesia: MAC Medications/Allergies Home Medications Medication Instructions Recorded Confirmed Last Taken Type aspirin 81 mg tablet,delayed 81 mg PO DAILY #90 tabs 10/27/19 09/10/22 09/08/22 Rx release coenzyme Q10 100 mg capsule (Co 100 mg PO DAILY 05/15/20 09/10/22 09/08/22 History Q-10) meloxicam 15 mg tablet 15 mg PO DAILY #60 tabs 06/28/20 09/10/22 09/08/22 Rx tamsulosin 0.4 mg capsule 0.4 mg PO DAILY 11/20/20 09/10/22 09/08/22 History losartan 25 mg tablet 25 mg PO DAILY #90 tabs 03/25/22 09/10/22 09/10/22 Rx atorvastatin 40 mg tablet 40 mg PO BEDTIME #90 tabs 05/15/22 09/10/22 09/08/22 Rx docusate sodium 100 mg capsule 100 mg PO DAILY 08/12/22 09/10/22 09/08/22 History Fish Oil 1 tab PO DAILY 09/08/22 09/10/22 09/08/22 History Glucosamine 1 tab PO BID 09/08/22 09/10/22 09/08/22 History Multi Vitamin 1 tab PO DAILY 09/08/22 09/10/22 09/08/22 History Vitamin D3 1 tab PO DAILY 09/08/22 09/10/22 09/08/22 History esroqzq-wdkn-tadbl-oreg-capryl 1 tab PO DAILY 09/08/22 09/10/22 09/08/22 History Allergies Allergy/AdvReac Type Severity Reaction Status Date / Time No Known Allergies Allergy Verified 09/10/22 07:47 [facility] Anesthesia Medical History (Updated 08/12/22 @ 09:00 by Chan Kebede DO) Coronary artery disease Hypertension Surgical History (Updated 08/12/22 @ 09:00 by Chan Kebede DO) History of left knee replacement History of tonsillectomy History of vasectomy Social History Smoking and tobacco status: never smoked Alcohol intake: former Substance/Drug Use: former Data Anesthesia Cardiac Studies: Echocardiogram Ultrasound 10/27/19
[2022-09-10 09:00] VITALS: BP 147/92; PULSE 65; RESP 14; TEMP 36.1; O2SAT 94
[2022-09-10 09:20] VITALS: BP 139/92; PULSE 68; RESP 18; O2SAT 94
--- NOTE | 2022-09-10 15:51 | ANE.PACU2 ---
Inpatient post-anesthesia follow up: Airway intact: Yes Vital signs: Temperature 97.0 F Pulse Rate 68 Respiratory Rate 18 Blood Pressure 139/92 Pulse Oximetry 94 Oxygen Delivery Me thod Room Air Oxygen Flow Rate 3 Fraction of Inspir ed Oxygen Hydration adequate: Yes Nausea and vomiting: No Pain level: 1 Mental status: Baseline
== END 2022-09-10 09:40 | disposition home or self-care (01) ==
PROVIDERS: PCP Family Medicine; Visit Provider Surgery
PROC: 0DJ08ZZ Inspection of Upper Intestinal Tract, Via Natural or Artificial Opening Endoscopic (ICD-10-PCS; CPT 43235; principal; 2022-09-10 08:45)
PROC: 0DJD8ZZ Inspection of Lower Intestinal Tract, Via Natural or Artificial Opening Endoscopic (ICD-10-PCS; CPT 45378; 2022-09-10 08:45)
DX: D50.9 Iron deficiency anemia, unspecified (principal); Z79.82 Long term (current) use of aspirin; I25.10 Atherosclerotic heart disease of native coronary artery without angina pectoris; I10 Essential (primary) hypertension; K21.9 Gastro-esophageal reflux disease without esophagitis; E78.5 Hyperlipidemia, unspecified; K20.90 Esophagitis, unspecified without bleeding; K44.9 Diaphragmatic hernia without obstruction or gangrene; K57.30 Diverticulosis of large intestine without perforation or abscess without bleeding; K63.5 Polyp of colon
CPT/HCPCS: 43239; 45385; 88305; J2704; J3490; J7030

== ENCOUNTER 2022-09-22 08:01 | Outpatient (CLI) | payer MEDICARE, SELFPAY ==
--- NOTE | 2022-09-22 08:24 | XR_ITS ---
WS: [id number] XR hip RT 2-3V wo/w pel* [id number] REASON FOR EXAM: PAIN IN RIGHT HIP FINDINGS: No fracture or focal bone lesion. Moderate narrowing of the joint space with moderate subchondral sclerosis and cystic change in the ac etabulum with moderate spurring of the femoral head. No soft tissue abnormality. XR/XR hip RT 2-3V wo/w pel* [id number] IMPRESSION: Moderate osteoarthritis of the right hip as above.
--- NOTE | 2022-09-22 08:35 | XR_ITS ---
WS: [id number] XR lumbar spine min 4V [id number] REASON FOR EXAM: PAIN IN R HIP FINDINGS: Moderate rotatory scoliosis convex right. Exaggeration of lumbar lordosis. Mild chronic compression deformities of T12 and L1. Significant narrowing of the disc space with vacuum phenomena at L2-L3 with endplate sclerosis and mo derate osteophytosis. Narrowing of the L5-S1 disc space with moderate endplate sclerosis and osteophytosis. No spondylolysis. Minimal anterolisthesis of L3 in relation to L2. Moderate degenerative change in the facet joints L3-S1. XR/XR lumbar spine min 4V [id number] IMPRESSION: Significant degenerative spondylosis of the lumbar spine as above.
== END 2022-09-22 08:02 | disposition home or self-care (01) ==
LOC: RAD 08:11
PROVIDERS: PCP Family Medicine; Visit Provider Family Medicine
DX: M47.816 Spondylosis without myelopathy or radiculopathy, lumbar region (principal); M16.11 Unilateral primary osteoarthritis, right hip; M25.551 Pain in right hip
CPT/HCPCS: 72110; 73502

== ENCOUNTER → 2022-09-24 17:51 | Outpatient (BNVA) | payer MEDICARE, SELFPAY | PROVIDERS: PCP Family Medicine; Visit Provider Surgery | DX: Z09 Encounter for follow-up examination after completed treatment for conditions other than malignant neoplasm (principal); K22.70 Barrett's esophagus without dysplasia | CPT/HCPCS: 99212 ==

== ENCOUNTER 2024-06-03 11:33 | Outpatient (CLI) | payer MEDICARE, SELFPAY ==
--- NOTE | 2024-06-03 11:39 | USR_ITS ---
PROCEDURE INFORMATION: Exam: US Scrotum Exam date and time: 06/03/2024 11:55 AM Age: 73 years old Clinical indication: Swelling, testicles or scrotum; Additional info: R scrotal swelling, pain/scrotal mass TECHNIQUE: Imaging protocol: Real-time ultrasound of the scrotum and contents with color Doppler and image documentation. COMPARISON: US scrotum [id number] 07/08/2021 11:43 AM FINDINGS: Right testicle: Normal. No mass. Normal color Doppler and arterial waveforms. No torsion. Left testicle: Normal. No mass. Normal color Doppler and arterial waveforms. No torsion. Epididymides: Normal. Scrotum/soft tissues: Right inguinal hernia extends into the scrotum. This contains a small amount of fluid US/US scrotum [id number] IMPRESSION: Contents of a right inguinal hernia extends into the scrotum. There is a small amount of fluid.
== END 2024-06-03 11:34 | disposition home or self-care (01) ==
LOC: RAD 11:35
PROVIDERS: PCP Family Medicine; Visit Provider Family Medicine
DX: N50.89 Other specified disorders of the male genital organs (principal); K40.90 Unilateral inguinal hernia, without obstruction or gangrene, not specified as recurrent
CPT/HCPCS: 76870